=== PATIENT | female | born 1980 | race Caucasian/White ===

== ENCOUNTER 2024-01-14 12:18 | Emergency (ER) | payer OTHER, SELFPAY ==
[2024-01-14 12:23] VITALS: BP 100/62; PULSE 88; RESP 15; TEMP 37.1; O2SAT 98; BMI 17.6
[2024-01-14 12:59] LABS: Add Manual Diff / Slide Review NO; Basophils Absolute Auto 0 /uL (0-100); Basophils Percent Auto 0.3 % (0-2); Eosinophils Absolute Auto 100 /uL (0-450); Eosinophils Percent Auto 0.6 % (2-4); Hematocrit 36.2 % (36-46); Hemoglobin 12.2 g/dL (12.0-16.0); Lymphocytes Absolute Auto 600 /uL (1100-4500); Lymphocytes Percent Auto 6.7 % (25-40); Mean Corpuscular HGB Conc 33.8 % (30-36); Mean Corpuscular Hemoglobin 28.9 PG (26-34); Mean Corpuscular Volume 85.6 fL (80-100); Monocytes Absolute Auto 500 /uL (0-900); Monocytes Percent Auto 5.3 % (3-14); Neutrophils Absolute Auto 7800 /uL (1500-7000); Neutrophils Percent Auto 87.1 % (50-75); Platelet Count 261 X10^3/uL (150-400); Red Blood Cell Count 4.23 X10^6/uL (4.0-5.2); Red Cell Distribution Width 13.6 % (11.6-14.8); White Blood Cell Count 8.9 X10^3/uL (4.5-11.0)
--- NOTE | 2024-01-14 13:13 | ED_ITS ---
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 She had surgery at [facility] on 01/04. She lives at [place]. They were hoping to do a large surgery with resection and reconstruction but due to the extent of the cancer they found, they simply did biopsies and closed the incision. She did not have any postprocedure antibiotics. She was doing well until about 3 days ago when she noticed increased redness and firmness along her left neck and drainage from the surgical site. She denies fever, chills or feeling unwell. She has no difficulty swallowing; currently on a liquid diet. She is planning to fly back to [facility]. She has followup with oncology next week. Related Data Previous Rx's Medication Instructions Recorded cephalexin 500 mg capsule 500 mg PO QID 5 days #20 caps 01/14/24 Allergies Allergy/AdvReac Type Severity Reaction Status Date / Time infliximab [From Remicade] Allergy Verified 01/14/24 12:22 Review of Systems <Yanelis Perez PA-C - Last Filed: 01/14/24 14:05> Review of Systems ROS Unobtainable: All systems reviewed & are unremarkable except as noted in HPI and below Patient History <Yanelis Perez PA-C - Last Filed: 01/14/24 14:05> Social History Smoking Status: Unknown if ever smoked Smoking Status: Unknown if ever smoked alcohol intake frequency: holidays/special occasions only Substance Use Type: does not use Exam <Yanelis Perez PA-C - Last Filed: 01/14/24 14:05> Narrative Exam Narrative: GENERAL: 43 year old patient appears stated age. Well-developed patient, in no acute distress. NEURO: AOx3. HEAD: Atraumatic. Normocephalic. EYES: Pupils equal round and reactive. Extraocular motions intact. No scleral icterus. No injection or drainage. ENT: Nose without bleeding or purulent drainage. Mild edema over the left mandible, nontender. Erythema, mild warmth and induration over the left anterior neck. Healing surgical site appears well approximated except for a 5 mm opening on the left end. The surgical site reaches across the entire neck. There is no active drainage and no drainage when I push over the indurated area. There is mild erythema and edema but no induration over the right anterior neck. Patient is able to speak normally, airway is patent. NECK: Trachea midline. Non tender RESPIRATORY: No increased work of breathing EXTREMITIES: No edema or joint tenderness. SKIN: No rash or erythema of visible areas Initial Vital Signs Initial Vital Signs: Vital Signs Temperature 98.7 F 01/14/24 12:23 Pulse Rate 88 01/14/24 12:23 Respiratory Rate 15 01/14/24 12:23 Blood Pressure 100/62 01/14/24 12:23 Pulse Oximetry 98 01/14/24 12:23 Oxygen Delivery Method Room Air 01/14/24 12:23 <Sha Bhatt DO - Last Filed: 01/14/24 14:36> Initial Vital Signs Initial Vital Signs: Vital Signs Temperature 98.7 F 01/14/24 12:23 Pulse Rate 88 01/14/24 12:23 Respiratory Rate 15 01/14/24 12:23 Blood Pressure 100/62 01/14/24 12:23 Pulse Oximetry 98 01/14/24 12:23 Oxygen Delivery Method Room Air 01/14/24 12:23 Course <Yanelis Perez PA-C - Last Filed: 01/14/24 14:05> Orders Ordered: ED Orders 01/14/24 12:47 CBC Auto Diff [Complete Blood Count AUTO DIFF] Stat CMP [Comprehensive Metabolic Panel] Stat Lactate (Lactic Acid) Stat Vital Signs Vital signs: Vital Signs - 8 hr 01/14/24 12:23 01/14/24 13:48 Temperature 98.7 F Pulse Rate 88 80 Respiratory Rate 15 18 Blood Pressure 100/62 98/59 L Pulse Oximetry 98 94 Oxygen Delivery Method Room Air Room Air <DO Safia Moore Last Filed: 01/14/24 14:36> Orders Ordered: ED Orders 01/14/24 12:47 CBC Auto Diff [Complete Blood Count AUTO DIFF] Stat CMP [Comprehensive Metabolic Panel] Stat Lactate (Lactic Acid) Stat Vital Signs Vital signs: Vital Signs - 8 hr 01/14/24 12:23 01/14/24 13:48 Temperature 98.7 F Pulse Rate 88 80 Respiratory Rate 15 18 Blood Pressure 100/62 98/59 L Pulse Oximetry 98 94 Oxygen Delivery Method Room Air Room Air MDM - Skin/Abscess/Foreign Bdy <Yanelis Perez PA-C - Last Filed: 01/14/24 14:05> Lab Data 01/14/24 12:47 01/14/24 12:47 Labs: Lab Results 01/14/24 Range/Units 12:47 WBC 8.9 (4.5-11.0) X10^3/uL RBC 4.23 (4.0-5.2) X10^6/uL Hgb 12.2 (12.0-16.0) g/dL Hct 36.2 (36-46) % MCV 85.6 (80-100) fL MCH 28.9 (26-34) PG MCHC 33.8 (30-36) % RDW 13.6 (11.6-14.8) % Plt Count 261 (150-400) X10^3/uL Neut % (Auto) 87.1 H (50-75) % Lymph % (Auto) 6.7 L (25-40) % Davison % (Auto) 5.3 (3-14) % Eos % (Auto) 0.6 L (2-4) % Baso % (Auto) 0.3 (0-2) % Neut # (Auto) 7800 H (9616-1043) /uL Lymph # (Auto) 600 L (9681-9885) /uL Davison # (Auto) 500 (0-900) /uL Eos # (Auto) 100 (0-450) /uL Baso # (Auto) 0 (0-100) /uL Sodium 136 L (137-145) mmol/L Potassium 3.9 (3.4-5.1) mmol/L Chloride 102 (98-107) mmol/L Carbon Dioxide 30 (22-32) mmol/L BUN 18 H (7-17) mg/dL Creatinine 0.70 (0.52-1.04) mg/dL Estimated GFR > 60 (>60) mL/min BUN/Creatinine Ratio 25.7 H (6-22) Glucose 149 H (70-100) mg/dL Lactate 1.5 (0.7-2.1) mmol/L Calcium 9.3 (8.4-10.2) mg/dL Total Bilirubin 0.4 (0.2-1.3) mg/dL AST 23 (14-36) IU/L ALT 24 (<35) IU/L Alkaline Phosphatase 70 (38-126) U/L Total Protein 7.4 (6.3-8.2) g/dL Albumin 3.9 (3.5-5.0) g/dL Globulin 3.5 (1.7-4.1) g/dL Albumin/Globulin Ratio 1.1 (1.0-2.8) MDM Narrative Medical decision making narrative: Multiple etiologies for patient's symptoms considered including, but not limited to: Surgical site infection, abscess, cellulitis Patient is a well-appearing 43-year-old with normal vital signs, no recent fever or chills, who presents with possible surgical site infection after a surgery on 01/05/2024. She has noticed increasing redness and swelling over her left anterior neck over the past 3 days and some drainage from the site. Labs show a normal white blood cell count, normal lactate, chemistry with mild hyperglycemia (patient is not diabetic but is currently on a liquid diet and drinking frequent weight-gain protein shakes, which may be contributing), and a mild elevation in her BUN. Encouraged to drink plenty of water.. Patient is afebrile and not tachycardic. Although I do believe antibiotics are indicated for cellulitis, I do not suspect a more significant abscess or neck space infection based on my exam and lab findings and vital signs. Discussed options with the patient including obtaining advanced imaging at this time versus a trial of oral antibiotics and watchful waiting. She prefers to start the antibiotics. She is flying home to [facility] and can easily access the emergency room there if needed. She understands what to look for and when to return for reassessment. She feels comfortable with this plan. Five day course of cephalexin prescribed, no history of MRSA. Patient's symptoms improved over duration of stay with above-stated therapies. Findings and discharge diagnosis discussed with patient/family followed by verbalization of understanding Return precautions discussed with patient/family whom verbalize understanding of diagnosis and plan <Sha Miller, - Last Filed: 01/14/24 14:36> Lab Data Labs: Lab Results 01/14/24 Range/Units 12:47 WBC 8.9 (4.5-11.0) X10^3/uL RBC 4.23 (4.0-5.2) X10^6/uL Hgb 12.2 (12.0-16.0) g/dL Hct 36.2 (36-46) % MCV 85.6 (80-100) fL MCH 28.9 (26-34) PG MCHC 33.8 (30-36) % RDW 13.6 (11.6-14.8) % Plt Count 261 (150-400) X10^3/uL Neut % (Auto) 87.1 H (50-75) % Lymph % (Auto) 6.7 L (25-40) % Davison % (Auto) 5.3 (3-14) % Eos % (Auto) 0.6 L (2-4) % Baso % (Auto) 0.3 (0-2) % Neut # (Auto) 7800 H (9770-9891) /uL Lymph # (Auto) 600 L (2179-6758) /uL Davison # (Auto) 500 (0-900) /uL Eos # (Auto) 100 (0-450) /uL Baso # (Auto) 0 (0-100) /uL Sodium 136 L (137-145) mmol/L Potassium 3.9 (3.4-5.1) mmol/L Chloride 102 (98-107) mmol/L Carbon Dioxide 30 (22-32) mmol/L BUN 18 H (7-17) mg/dL Creatinine 0.70 (0.52-1.04) mg/dL Estimated GFR > 60 (>60) mL/min BUN/Creatinine Ratio 25.7 H (6-22) Glucose 149 H (70-100) mg/dL Lactate 1.5 (0.7-2.1) mmol/L Calcium 9.3 (8.4-10.2) mg/dL Total Bilirubin 0.4 (0.2-1.3) mg/dL AST 23 (14-36) IU/L ALT 24 (<35) IU/L Alkaline Phosphatase 70 (38-126) U/L Total Protein 7.4 (6.3-8.2) g/dL Albumin 3.9 (3.5-5.0) g/dL Globulin 3.5 (1.7-4.1) g/dL Albumin/Globulin Ratio 1.1 (1.0-2.8) Discharge Plan Departure Patient Disposition: Home Clinical Impression: Surgical site infection Cellulitis Qualifiers: Site of cellulitis: neck Qualified Code(s): L03.221 - Cellulitis of neck Instructions: DI for Wound Infection Activity Restrictions/Additional Instructions: *You have been diagnosed with surgical site infection with cellulitis. Your vital signs are normal, you have no fever or chills, and there is no elevation of white blood cell count on your labs. I do not feel any abscess or fluid collection at the site. I believe it is safe for you to take oral antibiotics to treat this infection but with a low threshold to return to the emergency department for repeat assessment and CT imaging of the neck if necessary. If you develop fever, chills, feeling unwell, increased drainage, spreading redness and warmth, difficulty swallowing, please go to the emergency room. Regardless, please have the wound reassessed in the next week by healthcare provider. You can keep it covered with gauze or a bandage to catch any drainage, but it is actually good that there is a small hole to let the drainage come out. Was a pleasure meeting you and I wish you the best in your treatment. *What to do: *Please continue to take your regular medications as directed. [x] New medication prescriptions sent to your pharmacy: [facility] [ ] New medication written as a paper prescription [ ] No new medications given *Please follow up with your primary care provider in 2-3 days, call for an appointment. Let them know you were seen in the Emergency Department and that we ask that you be seen in follow up. We will electronically transmit a record of today's note if your PCP is in our system *If you do not have a primary care provider please contact the [facility] Resource line at [phone]. They will ask some questions about your medical history and help get you set up with a doctor in the community. *Return to Emergency Department if you should have any new, worsening or concerning symptoms, such as [fever greater than 101 F, shaking chills, worsening pain, persistent vomiting or other concerning symptoms]. Prescriptions: New cephalexin 500 mg capsule 500 mg PO QID 5 Days Qty: 20 0RF Referrals: Miscellaneous,Doctor, MD [Primary Care Provider] - Stand Alone Forms: Patient Portal/API ED Sign-out <Sha Bhatt DO - Last Filed: 01/14/24 14:36> Cosign ED Attending Cosignature Attestation: Dr Bhatt Co-Sign Statement: I was available for consultation during this patient's emergency department visit. This chart is signed by myself for administrative purposes only. I did not have direct contact with this patient during this visit. They were seen independently by the APC.
[2024-01-14 13:29] LABS: Lactate (Lactic Acid) 1.5 mmol/L (0.7-2.1)
[2024-01-14 13:48] VITALS: BP 98/59; PULSE 80; RESP 18; O2SAT 94
[2024-01-14 13:55] LABS: Alanine Aminotransferase 24 IU/L (<35); Albumin 3.9 g/dL (3.5-5.0); Albumin Globulin Ratio 1.1 (1.0-2.8); Alkaline Phosphatase 70 U/L (38-126); Aspartate Aminotransferase 23 IU/L (14-36); BUN Creatinine Ratio 25.7 (6-22); Bilirubin Total 0.4 mg/dL (0.2-1.3); Blood Urea Nitrogen 18 mg/dL (7-17); Calcium 9.3 mg/dL (8.4-10.2); Carbon Dioxide 30 mmol/L (22-32); Chloride 102 mmol/L (98-107); Estimated Glomerular Filt Rate > 60 mL/min (>60); Globulin 3.5 g/dL (1.7-4.1); Glucose 149 mg/dL (70-100); HEMOLYSIS < 15 (0-50); Potassium 3.9 mmol/L (3.4-5.1); Sodium 136 mmol/L (137-145); Total Protein 7.4 g/dL (6.3-8.2)
== END 2024-01-14 14:10 | disposition home or self-care (01) ==
PROVIDERS: Emergency Provider Physician Assistant
DX: T81.49XA Infection following a procedure, other surgical site, initial encounter (principal); L03.221 Cellulitis of neck
CPT/HCPCS: 80053; 83605; 85025; 99281; 99283